=== PATIENT | male | born 1935 | race Caucasian/White ===

== ENCOUNTER → 2018-02-18 | Outpatient (CLI) | payer MEDICARE, BC ==
[~2018-02-18] MED LIST: ASPIRIN 81M81 MG/TA2 PO; ASPIRIN E.C. 8181 MG PO; AVALIDE 12.5 MG1 TAB PO; BLOOD PRESSURE MED; COZAAR100 MG PO; DUO-KAPS1 CAP PO; FISH OIL1 POW; HYZAAR 25 MG-101 TAB PO; KEPPRA 500MG500 MG PO; KEPPRA250 MG PO; LOPRESSOR 225 MG/TAB PO; METOPROLOL25 MG PO; MULTIPLE VITAMI1 CAP PO; PACERONE200 MG PO; PLAVIX 75MG TAB75 MG; PLAVIX 75MG TAB75 MG PO; RITE AID FISH1000 MG PO; SIMVASTATIN20 MG PO; SIMVASTATIN40 MG PO; TYLENOL ARTHRI650 M1 PO; UNABLE; ZOCOR 20MG20 MG PO; ZOCOR 40MG40 MG PO; [UNRECOGNIZED DRUG - REMARK]
== END ==
LOC: COL.RAD 07:37
DX: N40.0 Benign prostatic hyperplasia without lower urinary tract symptoms (principal); K57.90 Diverticulosis of intestine, part unspecified, without perforation or abscess without bleeding
CPT/HCPCS: Q9967

== ENCOUNTER 2018-04-04 09:46 | Emergency (ER) | payer MEDICARE, BC ==
[~2018-04-04] VITALS: Ht 180.3 cm; Wt 77.3 kg
[2018-04-04 09:55] VITALS: TEMP 97
[2018-04-04 10:31] LABS: BASO # 0.1 (0.0-0.2); BASO % 0.5 % (0.0-2.0); GRAN % 75.4 % (42.2-75.2); HEMATOCRIT 44.7 % (42.0-52.0); HEMOGLOBIN 15.3 g/dl (13.5-18.0); LYMPH # 1.7 (1.2-3.4); LYMPH % 14.5 % (20.0-51.0); MEAN CELL VOLUME 93 fl (80.0-100.0); MEAN CORPUSCULAR HEMOGLOBIN 32 pg (27.0-31.0); MEAN CORPUSCULAR HGB CONC 34 g/dl (33.0-37.0); MEAN PLATELET VOLUME 9.9 fl (7.4-10.4); MONO # 1.1 (0.1-0.6); MONO % 9.3 % (1.7-9.3); PLATELET COUNT 155 K/mm3 (130-400); RED BLOOD COUNT 4.83 M/mm3 (4.20-5.60)
[2018-04-04 11:19] LABS: ALBUMIN 3.2 gm/dL (3.5-5.0); BILIRUBIN,TOTAL 1.3 mg/dL (0.0-1.0); CREATININE, serum 1.17 mg/dL (0.66-1.25); POTASSIUM 3.8 mmol/L (3.4-5.0); TOTAL PROTEIN 6.1 gm/dL (6.4-8.2)
[2018-04-04] MEDS ORDERED: ELIQUIS 2.5 PO (11:42)
[2018-04-04 11:49] VITALS: BP 133/67; PULSE 64
== END 2018-04-04 12:02 | disposition home or self-care (01) ==
LOC: COL.ER 09:46
PROVIDERS: Emergency Medicine
DX: I48.92 Unspecified atrial flutter (principal); R55 Syncope and collapse; I25.10 Atherosclerotic heart disease of native coronary artery without angina pectoris; I48.91 Unspecified atrial fibrillation; Z86.73 Personal history of transient ischemic attack (TIA), and cerebral infarction without residual deficits; Z79.02 Long term (current) use of antithrombotics/antiplatelets; Z79.82 Long term (current) use of aspirin
CPT/HCPCS: J7030

== ENCOUNTER 2020-08-07 12:46 | Emergency (ER) | payer MEDICARE, BC ==
[~2020-08-07] VITALS: Ht 177.8 cm; Wt 77.3 kg
[~2020-08-07 12:46] MED LIST changes: +ELIQUIS 2.5 PO
[2020-08-07 13:01] VITALS: TEMP 97.2
[2020-08-07 13:25] LABS: BASO # 0.1 (0.0-0.2); BASO % 0.7 % (0.0-2.0); EOS % 0.2 % (0-4.0); GRAN # 5.2 (1.4-6.5); GRAN % 63.8 % (42.2-75.2); HEMATOCRIT 46.6 % (42.0-52.0); LYMPH # 2.1 (1.2-3.4); LYMPH % 25.3 % (20.0-51.0); MEAN CELL VOLUME 92 fl (80.0-100.0); MEAN CORPUSCULAR HEMOGLOBIN 32 pg (27.0-31.0); MEAN CORPUSCULAR HGB CONC 34 g/dl (33.0-37.0); MEAN PLATELET VOLUME 10.6 fl (7.4-10.4); MONO # 0.8 (0.1-0.6); MONO % 9.6 % (1.7-9.3); PLATELET COUNT 174 K/mm3 (130-400); RED BLOOD COUNT 5.05 M/mm3 (4.20-5.60); REDCELL DISTRIBUTION WIDTH-CV 11.9 % (11.5-14.5)
[2020-08-07 13:28] LABS: INR 1.2 (0.8-3.0); PROTHROMBIN TIME 13.5 SECONDS (9.7-12.8)
[2020-08-07 13:37] LABS: ALANINE AMINOTRANSFERASE 30 U/L (4-49); ALBUMIN 4.4 gm/dL (3.5-5.0); ALKALINE PHOSPHATASE 75 U/L (50-136); ANION GAP 11 mmol/L (7-16); AST,SGOT 34 U/L (15-37); BILIRUBIN,TOTAL 1.5 mg/dL (0.0-1.0); BLOOD UREA NITROGEN 20 mg/dL (9-20); C-REACTIVE PROTEIN < 0.5 mg/dL (0.0-0.9); CALCIUM 8.9 mg/dL (8.4-10.2); CARBON DIOXIDE 25 mmol/L (22-30); CHLORIDE 102 mmol/L (98-107); CREATININE, serum 1.48 (0.66-1.25); GLUCOSE 125 mg/dL (74-106); MAGNESIUM 2.1 mg/dL (1.6-2.3); POTASSIUM 3.9 mmol/L (3.4-5.0); SODIUM 137 mmol/L (137-145); TOTAL PROTEIN 7.5 gm/dL (6.4-8.2)
[2020-08-07 13:47] LABS: TROPONIN-I < 0.012 ng/mL (0.000-0.035)
[2020-08-07 14:05] VITALS: PULSE 77
== END 2020-08-07 14:00 | disposition home or self-care (01) ==
LOC: COL.ER 12:46
PROVIDERS: Emergency Medicine
DX: E87.5 Hyperkalemia (principal); I10 Essential (primary) hypertension; I25.10 Atherosclerotic heart disease of native coronary artery without angina pectoris; E78.5 Hyperlipidemia, unspecified; Z88.0 Allergy status to penicillin; Z79.01 Long term (current) use of anticoagulants; Z79.02 Long term (current) use of antithrombotics/antiplatelets; Z79.82 Long term (current) use of aspirin; Z95.1 Presence of aortocoronary bypass graft

== ENCOUNTER 2020-09-03 17:41 | Observation (INO) | payer MEDICARE, BC ==
[~2020-09-03] VITALS: Ht 177.8 cm; Wt 76.7 kg
[2020-09-03] MEDS ORDERED: ELIQUIS 2.5 PO (17:47)
[2020-09-03] MEDS ORDERED: PACERONE100 MG PO (17:47)
[2020-09-03] MEDS ORDERED: COZAAR 50MG50 MG/TAB PO (17:47)
[2020-09-03] MEDS ORDERED: ZOCOR 20MG20 MG PO (17:48)
[2020-09-03] MEDS ORDERED: LEVOXYL0.075 MG PO (17:48)
[2020-09-03] MEDS ORDERED: ASPIRIN 81M81 MG/TA2 PO (17:48)
[2020-09-03] MEDS ORDERED: EPA FISH OIL1 SGL PO (17:49)
[2020-09-03] MEDS ORDERED: ONE-A-DAY ESSE1 EACH PO (17:49)
[2020-09-03] MEDS ORDERED: FLOMAX 0.40.4 MG/CAP PO (17:49)
[2020-09-03 18:09] LABS: BASO # 0.1 (0.0-0.2); EOS % 0.1 % (0-4.0); GRAN # 4.8 (1.4-6.5); GRAN % 62.5 % (42.2-75.2); HEMATOCRIT 44.5 % (42.0-52.0); HEMOGLOBIN 15.1 g/dl (13.5-18.0); LYMPH # 1.9 (1.2-3.4); LYMPH % 25.2 % (20.0-51.0); MEAN CELL VOLUME 94 fl (80.0-100.0); MEAN CORPUSCULAR HEMOGLOBIN 32 pg (27.0-31.0); MEAN CORPUSCULAR HGB CONC 34 g/dl (33.0-37.0); MEAN PLATELET VOLUME 10.2 fl (7.4-10.4); MONO # 0.8 (0.1-0.6); MONO % 10.7 % (1.7-9.3); PLATELET COUNT 166 K/mm3 (130-400); RED BLOOD COUNT 4.76 M/mm3 (4.20-5.60)
[2020-09-03 18:13] LABS: ALANINE AMINOTRANSFERASE 28 U/L (4-49); ALKALINE PHOSPHATASE 62 U/L (50-136); ANION GAP 8 mmol/L (7-16); AST,SGOT 26 U/L (15-37); BILIRUBIN,TOTAL 1.3 mg/dL (0.0-1.0); BLOOD UREA NITROGEN 22 mg/dL (9-20); CALCIUM 8.5 mg/dL (8.4-10.2); CARBON DIOXIDE 25 mmol/L (22-30); CHLORIDE 107 mmol/L (98-107); CREATININE, serum 1.58 (0.66-1.25); GLUCOSE 125 mg/dL (74-106); POTASSIUM 4.9 mmol/L (3.4-5.0); SODIUM 140 mmol/L (137-145); TOTAL PROTEIN 6.8 gm/dL (6.4-8.2)
[2020-09-03 18:27] LABS: TROPONIN-I < 0.012 ng/mL (0.000-0.035)
[2020-09-03 18:48] VITALS: BP 148/62; PULSE 68
[2020-09-03 19:32] LABS: COLLECTION METHOD CLEAN CATCH
[2020-09-03 19:39] LABS: MUCOUS Present /lpf; PH 6 (5-8); SQUAMOUS EPITHELIAL None Seen /hpf; URINE APPEARANCE Hazy; URINE BACTERIA None Seen /hpf; URINE BILIRUBIN Negative (NEGATIVE); URINE BLOOD Negative (NEGATIVE); URINE COLOR Yellow; URINE GLUCOSE Negative (NEGATIVE); URINE KETONE Negative (NEGATIVE); URINE LEUKOCYTE ESTERASE Negative (NEGATIVE); URINE NITRATE Negative (NEGATIVE); URINE PROTEIN(semi-quant) Negative (NEGATIVE); URINE RBC 0-2 /hpf
[2020-09-03] MEDS ORDERED: CORDARONE200 MG/TAB PO (22:23)
[2020-09-03 23:21] VITALS: BP 151/54; PULSE 62; TEMP 98
--- NOTE | 2020-09-03 23:48 | NUR ---
Pt. arrived to the floor via wheelchair. Pt. is A&OX3, assessment complete. INT to lt. ac patent, IV fluids infusing per orders. Pt. denies pain or other needs, call light within reach.
[2020-09-04 03:42] VITALS: BP 159/61; PULSE 71; TEMP 97.6
[2020-09-04 04:00] LABS: MAGNESIUM 2.2 mg/dL (1.6-2.3)
[2020-09-04 04:19] LABS: PROLACTIN 12.3 ng/mL (3.7-17.9)
[2020-09-04 04:32] LABS: TSH w REFLEX 0.904 uIU/mL (0.465-4.680)
[2020-09-04 07:20] VITALS: BP 148/53; PULSE 74; TEMP 98.2
[2020-09-04 07:22] VITALS: BP 148/53
--- NOTE | 2020-09-04 08:00 | NUR ---
Patient in bed resting. Alert and oriented x 3. Assessment complete. Denies pain at this time. Denies further needs at this time.
--- NOTE | 2020-09-04 08:30 | NUR ---
Dr. Gregory in to see patient.
--- NOTE | 2020-09-04 09:20 | NUR ---
PT in to work with patient.
--- NOTE | 2020-09-04 10:43 | NUR ---
First visit from the director of midwifery/staff midwife. No needs right now.
[2020-09-04 11:16] VITALS: BP 150/57; PULSE 66; TEMP 97.5
--- NOTE | 2020-09-04 11:24 | NUR ---
Patient down for MRI
--- NOTE | 2020-09-04 11:36 | NUR ---
Went up to Patient's room to complete EEG as discussed prior with nurse. Patient was also about to go to MRI. MRI would not be able to be completed again until next week with Henrique from [employer] available for pacemaker. Patient's EEG will be completed tomorrow surgical forceps fabricator. Discussed with patient, his , and RN. Cecil Rouse, [employer] MACHINE OPERATOR
--- NOTE | 2020-09-04 13:51 | NUR ---
P[employer] Trimmer met with patient to discuss discharge planning. Patient lives in [place] with his , Mini (ph#[phone]) who is also at bedside. Patient sees Dr. Abreu for primary care and picks up medications from [facility] with no difficulties. Patient does not use any DME and reports independence with ADLS. Patient states he has [facility]PO[facility] which designates his , Mini and his daughter, Kavya Gauthier but there is no copy in EMR. Patient plans to return home at discharge and states he was ready to go home today. SW will continue to follow as needed.
[2020-09-04 16:29] VITALS: BP 129/56; PULSE 54; TEMP 97.7
--- NOTE | 2020-09-04 16:32 | NUR ---
Patient in bed resting. Denies further needs at this time.
--- NOTE | 2020-09-04 18:29 | NUR ---
Patient has done well throughout the day. Denies pain or further syncopal episodes. Denies further needs at this time. Will report off to manager night.
[2020-09-04 19:42] VITALS: BP 138/52; PULSE 61; TEMP 98.3
--- NOTE | 2020-09-04 21:30 | NUR ---
Pt. sitting up in bed. Pt. is A&OX3, assessment complete. INT to lt. ac patent. Pt. denies pain or other needs, call light within reach.
[2020-09-05] VITALS: BP 120/46; PULSE 67; TEMP 98.8
[2020-09-05 05:09] VITALS: BP 145/59; PULSE 65; TEMP 98.5
[2020-09-05 08:06] VITALS: BP 164/58; PULSE 68; TEMP 98.3
[2020-09-05 08:14] LABS: BASO # 0.1 (0.0-0.2); BASO % 0.9 % (0.0-2.0); GRAN # 4.6 (1.4-6.5); GRAN % 57.9 % (42.2-75.2); HEMATOCRIT 43.3 % (42.0-52.0); HEMOGLOBIN 14.8 g/dl (13.5-18.0); LYMPH # 2.4 (1.2-3.4); LYMPH % 29.8 % (20.0-51.0); MEAN CELL VOLUME 93 fl (80.0-100.0); MEAN CORPUSCULAR HEMOGLOBIN 32 pg (27.0-31.0); MEAN CORPUSCULAR HGB CONC 34 g/dl (33.0-37.0); MEAN PLATELET VOLUME 10.9 fl (7.4-10.4); MONO # 0.9 (0.1-0.6); PLATELET COUNT 156 K/mm3 (130-400); RED BLOOD COUNT 4.66 M/mm3 (4.20-5.60)
[2020-09-05 08:21] LABS: CALCIUM 8.7 mg/dL (8.4-10.2); CREATININE, serum 1.31 (0.66-1.25); POTASSIUM 4.2 mmol/L (3.4-5.0)
--- NOTE | 2020-09-05 08:45 | NUR ---
Patient alert and oriented, answers questions appropriately. See assessment. No of syncope or vertigo. No other c/o at this time.
--- NOTE | 2020-09-05 09:15 | NUR ---
Dr Zapata here to see patient.
--- NOTE | 2020-09-05 11:39 | NUR ---
Discharge instructions reviewed with patient and spouse, verbalized understanding. Discharged via wheelchair to auto/home with spouse at 1130.
== END 2020-09-05 11:30 | disposition home or self-care (01) ==
LOC: COL.ER 17:41 → SURG 20:39
PROVIDERS: Nurse Practitioner; Nurse Practitioner Family; Physician Assistant; ADMIT Student in an Organized Health Care Education/Training Program
DX: R55 Syncope and collapse (principal); I25.10 Atherosclerotic heart disease of native coronary artery without angina pectoris; I65.21 Occlusion and stenosis of right carotid artery; I12.9 Hypertensive chronic kidney disease with stage 1 through stage 4 chronic kidney disease, or unspecified chronic kidney disease; N18.9 Chronic kidney disease, unspecified; I67.9 Cerebrovascular disease, unspecified; I45.10 Unspecified right bundle-branch block; E78.5 Hyperlipidemia, unspecified; E03.9 Hypothyroidism, unspecified; N40.0 Benign prostatic hyperplasia without lower urinary tract symptoms; Z95.0 Presence of cardiac pacemaker; Z95.1 Presence of aortocoronary bypass graft; Z23 Encounter for immunization; I48.91 Unspecified atrial fibrillation; Z79.01 Long term (current) use of anticoagulants; Z86.718 Personal history of other venous thrombosis and embolism; Z86.73 Personal history of transient ischemic attack (TIA), and cerebral infarction without residual deficits; Z95.2 Presence of prosthetic heart valve; Z88.0 Allergy status to penicillin; Z79.82 Long term (current) use of aspirin; Z95.818 Presence of other cardiac implants and grafts; Z90.49 Acquired absence of other specified parts of digestive tract
CPT/HCPCS: A9585; G0378; J7030

== ENCOUNTER 2021-04-17 11:05 | Emergency (ER) | payer MEDICARE, BC ==
[~2021-04-17] VITALS: Ht 177.8 cm; Wt 72.7 kg
[~2021-04-17 11:05] MED LIST changes: +CORDARONE200 MG/TAB PO; +COZAAR 50MG50 MG/TAB PO; +EPA FISH OIL1 SGL PO; +FLOMAX 0.40.4 MG/CAP PO; +LEVOXYL0.075 MG PO; +ONE-A-DAY ESSE1 EACH PO; +PACERONE100 MG PO
[2021-04-17 12:02] LABS: BASO # 0.1 (0.0-0.2); BASO % 0.5 % (0.0-2.0); EOS % 0.2 % (0-4.0); GRAN # 8.9 (1.4-6.5); GRAN % 74.8 % (42.2-75.2); HEMATOCRIT 45.2 % (42.0-52.0); HEMOGLOBIN 15.6 g/dl (13.5-18.0); LYMPH # 1.8 (1.2-3.4); LYMPH % 14.8 % (20.0-51.0); MEAN CELL VOLUME 90 fl (80.0-100.0); MEAN CORPUSCULAR HEMOGLOBIN 31 pg (27.0-31.0); MEAN CORPUSCULAR HGB CONC 35 g/dl (33.0-37.0); MEAN PLATELET VOLUME 10.6 fl (7.4-10.4); MONO # 1.1 (0.1-0.6); MONO % 9.3 % (1.7-9.3); PLATELET COUNT 168 K/mm3 (130-400); RED BLOOD COUNT 5.03 M/mm3 (4.20-5.60); REDCELL DISTRIBUTION WIDTH-CV 11.6 % (11.5-14.5)
[2021-04-17 12:06] LABS: ALBUMIN 4.1 gm/dL (3.5-5.0); BILIRUBIN,TOTAL 1.6 mg/dL (0.0-1.0); CREATININE, serum 1.22 (0.66-1.25); INR 1.2 (0.8-3.0); POTASSIUM 4.1 mmol/L (3.4-5.0); PROTHROMBIN TIME 13.7 SECONDS (9.7-12.8); TOTAL PROTEIN 7.3 gm/dL (6.4-8.2)
[2021-04-17 12:09] LABS: PARTIAL THROMBOPLASTIN TIME 28.4 SECONDS (26.0-37.0)
[2021-04-17 12:18] LABS: TROPONIN-I 0.017 ng/mL (0.000-0.035)
[2021-04-17 13:09] LABS: COLLECTION METHOD CLEAN CATCH
[2021-04-17 13:19] LABS: MUCOUS Present /lpf; PH 6 (5-8); SQUAMOUS EPITHELIAL None Seen /hpf; URINE APPEARANCE Hazy; URINE BACTERIA Rare /hpf; URINE BILIRUBIN Negative (NEGATIVE); URINE BLOOD Negative (NEGATIVE); URINE COLOR Yellow; URINE GLUCOSE Negative (NEGATIVE); URINE KETONE Negative (NEGATIVE); URINE LEUKOCYTE ESTERASE Negative (NEGATIVE); URINE NITRATE Negative (NEGATIVE); URINE PROTEIN(semi-quant) Negative (NEGATIVE); URINE RBC 0-2 /hpf
[2021-04-17 13:57] VITALS: BP 118/54; PULSE 68; TEMP 97.9
== END 2021-04-17 13:59 | disposition home or self-care (01) ==
LOC: COL.ER 11:05
PROVIDERS: Emergency Medicine
DX: R55 Syncope and collapse (principal); E78.5 Hyperlipidemia, unspecified; I12.9 Hypertensive chronic kidney disease with stage 1 through stage 4 chronic kidney disease, or unspecified chronic kidney disease; N18.9 Chronic kidney disease, unspecified; I25.10 Atherosclerotic heart disease of native coronary artery without angina pectoris; E03.9 Hypothyroidism, unspecified; I48.91 Unspecified atrial fibrillation; Z95.9 Presence of cardiac and vascular implant and graft, unspecified; Z95.0 Presence of cardiac pacemaker; Z86.73 Personal history of transient ischemic attack (TIA), and cerebral infarction without residual deficits; Z88.0 Allergy status to penicillin; Z79.890 Hormone replacement therapy; Z79.01 Long term (current) use of anticoagulants; Z79.82 Long term (current) use of aspirin

== ENCOUNTER → 2021-05-01 | Outpatient (CLI) | payer MEDICARE, BC | LOC: COL.RAD 11:12 | DX: K57.90 Diverticulosis of intestine, part unspecified, without perforation or abscess without bleeding (principal) | CPT/HCPCS: Q9967 ==

== ENCOUNTER 2022-01-31 08:07 | Day surgery (SDC) | payer MEDICARE, BC ==
[~2022-01-31] VITALS: Ht 177.8 cm; Wt 75.0 kg
[2022-01-31] VITALS (9 sets, daily range): BP systolic 100–156; BP diastolic 56–95; PULSE 65–82; TEMP 97.7
[~2022-01-31 08:07] MED LIST changes: +LEVOXYL0.05 MG PO; -LEVOXYL0.075 MG PO
[2022-01-31] MEDS ORDERED: FLOMAX 0.40.4 MG/CAP PO (08:41)
[2022-01-31] MEDS ORDERED: COZAAR 50MG50 MG/TAB PO (08:41)
[2022-01-31] MEDS ORDERED: FIBERCON PO (08:42)
[2022-01-31 09:01] LABS: BASO # 0.1 K/mm3 (0.0-0.2); BASO % 0.9 % (0.0-2.0); EOS % 0.3 % (0.0-4.0); GRAN # 4.4 K/mm3 (1.4-6.5); GRAN % 54.9 % (42.2-75.2); HEMATOCRIT 48.3 % (42.0-52.0); HEMOGLOBIN 16.6 g/dl (13.5-18.0); LYMPH # 2.6 K/mm3 (1.2-3.4); LYMPH % 32.4 % (20.0-51.0); MEAN CELL VOLUME 91 fl (80.0-100.0); MEAN CORPUSCULAR HEMOGLOBIN 31 pg (27-31); MEAN CORPUSCULAR HGB CONC 34 g/dl (33.0-37.0); MEAN PLATELET VOLUME 10.3 fl (7.4-10.4); MONO # 0.9 K/mm3 (0.1-0.6); MONO % 11.2 % (1.7-9.3); PLATELET COUNT 160 K/mm3 (130-400); RED BLOOD COUNT 5.31 M/mm3 (4.20-5.60)
[2022-01-31 09:10] LABS: PROTHROMBIN TIME 11.5 SECONDS (9.7-12.8)
[2022-01-31 09:21] LABS: CALCIUM 9.4 mg/dL (8.4-10.2); CREATININE, serum 1.25 mg/dL (0.72-1.25); POTASSIUM 4.8 mmol/L (3.5-4.5)
--- NOTE | 2022-01-31 09:29 | NUR ---
SEE MERGE FOR ALL MEDICATION ADMINISTRATION/DOSAGES AND INTRA POST PROCEDURE SEDATION ASSESSMENTS. PRE PROCEDURE ASSESSMENT COMPLETED IN [facility].
--- NOTE | 2022-01-31 13:02 | NUR ---
Pt assisted up to restroom. Gait steady. He has tolerated PO without issue. INT DC'd with catheter intact so patient may get dressed. Awaiting DC paperwork from Dr Stewart. Dressing over gen change site remains clean, dry and intact.
--- NOTE | 2022-01-31 13:25 | NUR ---
DC instructions reviewed with pt and , both express understanding. Dressing remains clean, dry and intact. Pt is assisted out to 's car by wheelchair.
== END 2022-01-31 13:30 | disposition home or self-care (01) ==
LOC: COL.CAR 08:07
PROVIDERS: Internal Medicine Cardiovascular Disease
DX: Z45.010 Encounter for checking and testing of cardiac pacemaker pulse generator [battery] (principal); I49.5 Sick sinus syndrome; I48.0 Paroxysmal atrial fibrillation
CPT/HCPCS: C1785; J2250; J3010; J3370; J7030; J7050

== ENCOUNTER → 2022-02-19 | Outpatient (CLI) | payer MEDICARE, BC ==
[~2022-02-19] MED LIST changes: +FIBERCON PO
== END ==
LOC: COL.RAD 15:17
DX: Z95.0 Presence of cardiac pacemaker (principal)

== ENCOUNTER → 2022-09-18 | Outpatient (CLI) | payer MEDICARE, BC | LOC: COL.RAD 11:09 | DX: K44.9 Diaphragmatic hernia without obstruction or gangrene (principal); R91.1 Solitary pulmonary nodule; Z90.49 Acquired absence of other specified parts of digestive tract; K31.5 Obstruction of duodenum | CPT/HCPCS: Q9967 ==